=== PATIENT | male | born 1960 | race Caucasian/White ===

== ENCOUNTER 2017-11-13 00:25 | Emergency (ER) | payer BC ==
[~2017-11-13] VITALS: Ht 170.2 cm; Wt 80.7 kg
[2017-11-13 00:42] VITALS: Ht 170.2 cm; Wt 80.7 kg
[2017-11-13 03:58] LABS: BASOPHIL % 0.7 % (0-2); PLATELET COUNT 169 x10^3mcL (130-400); RED CELL DISTRIBUTION WIDTH 14.6 % (11.5-14.5)
[2017-11-13 04:31] LABS: UA SPECIFIC GRAVITY 1.015 (1.005-1.035); microscopic required? YES; urine erythrocyte 2+ (NEGATIVE)
[2017-11-13 04:54] LABS: CALCIUM 8.3 mg/dL (8.5-10.1); CARBON DIOXIDE 28.9 mmol/L (21-32); CHLORIDE SERUM 103 mmol/L (98-107); CREATININE SERUM 0.9 mg/dL (0.7-1.3); GFR1 > 60 mL/min; GLUCOSE SERUM 110 mg/dL (74-106); POTASSIUM SERUM 4.6 mmol/L (3.5-5.1); SODIUM SERUM 136 mmol/L (136-145)
[2017-11-13 05:00] LABS: ALBUMIN 3.6 g/dL (3.4-5.0); ALKALINE PHOSPHATASE 56 U/L (46-116); ALT/SGPT 55 U/L (16-63); AST/SGOT 26 U/L (15-37); BILIRUBIN TOTAL 0.2 mg/dL (0.20-1.00); TOTAL PROTEIN, SERUM 7.2 g/dL (6.4-8.2)
[2017-11-13 05:41] VITALS: BP 125/82
== END 2017-11-13 07:58 | disposition home or self-care (01) ==
LOC: ED 00:25
PROVIDERS: Emergency Medicine
DX: R10.9 Unspecified abdominal pain (principal); R11.0 Nausea
CPT/HCPCS: 36415; J1885

== ENCOUNTER 2017-11-17 05:33 | Emergency (ER) | payer OTHER ==
[2017-11-17 07:42] VITALS: BP 155/96
== END 2017-11-17 07:42 | disposition home or self-care (01) ==
LOC: ED 05:33
DX: M54.9 Dorsalgia, unspecified (principal); R10.31 Right lower quadrant pain
CPT/HCPCS: J1885

== ENCOUNTER 2018-08-04 19:42 | Inpatient (IN) | payer OTHER ==
[~2018-08-04] VITALS: Ht 170.2 cm; Wt 74.5 kg
[2018-08-04 20:51] LABS: BASOPHIL % 0.1 % (0-2)
[2018-08-04 20:53] LABS: PLATELET COUNT 452 x10^3mcL (130-400); RED CELL DISTRIBUTION WIDTH 14.6 % (11.5-14.5)
[2018-08-04 21:09] LABS: CARBON DIOXIDE 27.4 mmol/L (21-32); CREATININE SERUM 1.4 mg/dL (0.7-1.3); POTASSIUM SERUM 4.4 mmol/L (3.5-5.1)
[2018-08-04 21:14] LABS: BILIRUBIN TOTAL 0.4 mg/dL (0.20-1.00); TOTAL PROTEIN, SERUM 8.2 g/dL (6.4-8.2)
[2018-08-04 21:15] LABS: ALBUMIN 2.8 g/dL (3.4-5.0)
[2018-08-04 21:46] LABS: UA SPECIFIC GRAVITY >=1.030 (1.005-1.035); microscopic required? YES; urine erythrocyte 2+ (NEGATIVE)
[2018-08-05] VITALS (7 sets, daily range): BP systolic 95–128; BP diastolic 61–79; Ht 170.2 cm; Wt 74.5 kg
[2018-08-05 06:14] LABS: RED CELL DISTRIBUTION WIDTH 13.9 % (11.5-14.5)
[2018-08-05 07:07] LABS: ALKALINE PHOSPHATASE 58 U/L (46-116); ALT/SGPT 42 U/L (16-63); AST/SGOT 35 U/L (15-37); BILIRUBIN TOTAL 0.41 mg/dL (0.20-1.00); CARBON DIOXIDE 24.5 mmol/L (21-32); CHLORIDE SERUM 101 mmol/L (98-107); GFR1 > 60 mL/min; GLUCOSE SERUM 85 mg/dL (74-106); POTASSIUM SERUM 4.1 mmol/L (3.5-5.1); SODIUM SERUM 136 mmol/L (136-145); TOTAL PROTEIN, SERUM 6.7 g/dL (6.4-8.2)
[2018-08-05 07:08] LABS: PLATELET COUNT 426 x10^3mcL (130-400)
[2018-08-05 07:09] LABS: BASOPHIL % 0 % (0-2)
[2018-08-05 07:11] LABS: ALBUMIN 2.3 g/dL (3.4-5.0)
[2018-08-06 06:08] VITALS: BP 108/68
[2018-08-06 06:29] LABS: RED CELL DISTRIBUTION WIDTH 14.1 % (11.5-14.5)
[2018-08-06 06:42] LABS: BASOPHIL % 0 % (0-2); PLATELET COUNT 480 x10^3mcL (130-400)
[2018-08-06 06:43] LABS: rbc morphology (normal/abnorm) ABNORMAL (NORMAL)
[2018-08-06 07:12] LABS: ALBUMIN 2.2 g/dL (3.4-5.0); ALKALINE PHOSPHATASE 55 U/L (46-116); ALT/SGPT 36 U/L (16-63); AST/SGOT 31 U/L (15-37); BILIRUBIN DIRECT 0.12 mg/dL (0.0-0.2); BILIRUBIN TOTAL 0.4 mg/dL (0.20-1.00); CALCIUM 8.6 mg/dL (8.5-10.1); CARBON DIOXIDE 26.4 mmol/L (21-32); CHLORIDE SERUM 100 mmol/L (98-107); GFR1 > 60 mL/min; GLUCOSE SERUM 85 mg/dL (74-106); MAGNESIUM 2.1 mg/dL (1.8-2.4); POTASSIUM SERUM 4.2 mmol/L (3.5-5.1); SODIUM SERUM 136 mmol/L (136-145); TOTAL PROTEIN, SERUM 6.8 g/dL (6.4-8.2)
[2018-08-06 07:53] VITALS: BP 137/80
[2018-08-06 11:59] VITALS: BP 130/78
[2018-08-06 16:26] VITALS: BP 110/78
[2018-08-06 20:48] VITALS: BP 105/59
[2018-08-07 05:45] VITALS: BP 131/86
[2018-08-07 06:16] LABS: BASOPHIL % 0.6 % (0-2); RED CELL DISTRIBUTION WIDTH 14.5 % (11.5-14.5)
[2018-08-07 06:35] LABS: CALCIUM 8.5 mg/dL (8.5-10.1); CARBON DIOXIDE 25.5 mmol/L (21-32); CHLORIDE SERUM 100 mmol/L (98-107); CREATININE SERUM 1.1 mg/dL (0.7-1.3); GFR1 > 60 mL/min; GLUCOSE SERUM 89 mg/dL (74-106); POTASSIUM SERUM 4.5 mmol/L (3.5-5.1); SODIUM SERUM 135 mmol/L (136-145)
[2018-08-07 06:54] LABS: PLATELET COUNT 476 x10^3mcL (130-400); rbc morphology (normal/abnorm) ABNORMAL (NORMAL)
[2018-08-07 09:30] VITALS: BP 113/77
[2018-08-07 11:04] LABS: AMPHETAMINE QUAL UR NONE DETECTED (See below)
[2018-08-07 12:58] VITALS: BP 119/66
[2018-08-07 17:35] VITALS: BP 119/79
[2018-08-07 21:23] VITALS: BP 118/70
[2018-08-07 22:00] VITALS: BP 120/75
[2018-08-08 05:09] VITALS: BP 114/77
[2018-08-08 09:28] VITALS: BP 127/78
[2018-08-08 12:04] LABS: RAPID PLASMA REAGIN Non Reactive (Non Reactive)
[2018-08-08 13:04] VITALS: BP 113/78
[2018-08-08 14:46] LABS: APPEARANCE FLUID CLEAR; COLOR FLUID YELLOW; LYMPHOCYTE FLUID 84 %; MONOCYTE FLUID 0 %; RBC FLUID 258 /cumm; SOURCE FLUID ASCITES; WBC FLUID 98 /cumm
[2018-08-08 15:42] VITALS: BP 113/78
[2018-08-08 17:20] VITALS: BP 119/67
[2018-08-08 21:07] VITALS: BP 116/74
[2018-08-09 05:50] VITALS: BP 111/60
[2018-08-09] MEDS ORDERED: ACYCLOVIR200 MG PO (07:09)
[2018-08-09 09:12] VITALS: BP 114/71
== END 2018-08-09 12:10 | disposition home or self-care (01) | DRG 728 ==
LOC: ED 19:42 → DU 23:36 → EDBEDREQ 23:44 → DU 08-05 00:15
PROVIDERS: Emergency Medicine; Internal Medicine; Internal Medicine Pulmonary Disease
PROC: 0W9G3ZZ Drainage of Peritoneal Cavity, Percutaneous Approach (ICD-10-PCS; principal; 2018-08-08)
DX: A60.1 Herpesviral infection of perianal skin and rectum (principal); R18.8 Other ascites; K76.0 Fatty (change of) liver, not elsewhere classified; K80.20 Calculus of gallbladder without cholecystitis without obstruction; F10.20 Alcohol dependence, uncomplicated; Z89.021 Acquired absence of right finger(s); Z23 Encounter for immunization
CPT/HCPCS: 49083; 90658; C1729; G0480; J1650; J2405; J2543; J3490; J7030; Q0092